=== PATIENT | male | born 1985 | race American Indian/Alaskan Native ===

== ENCOUNTER 2018-01-14 02:20 | Emergency (ER) | payer MEDICAID ==
[2018-01-14 04:23] LABS: Basophils % (Auto) 0.2 % (0.0-1.8); Eosinophils # (Auto) 0.1 K/mm3 (0.0-0.4); Eosinophils % (Auto) 1.1 % (0.0-4.3); Hematocrit 47.3 % (35.5-45.6); Hemoglobin 16.1 gm/dl (11.8-15.2); Lymphocytes # (Auto) 0.6 K/mm3 (1.2-5.4); Lymphocytes % (Auto) 5.1 % (13.4-35.0); Mean Corpuscular HGB Conc 34 % (32-34); Mean Corpuscular Hemoglobin 31 pg (28-32); Mean Corpuscular Volume 90 fl (84-94); Monocytes # (Auto) 0.5 K/mm3 (0.0-0.8); Monocytes % (Auto) 4.4 % (0.0-7.3); Platelet Count 211 K/mm3 (140-440); Red Blood Count 5.25 M/mm3 (3.65-5.03); Red Cell Distribution Width 12.9 % (13.2-15.2)
[2018-01-14 05:27] LABS: Alanine Aminotransferase 15 units/L (7-56); Albumin 5.2 g/dL (3.9-5); BUN/Creatinine Ratio 22; Blood Urea Nitrogen 20 mg/dL (9-20); Calcium 9.7 mg/dL (8.4-10.2); Hemolysis Index 16
--- NOTE | 2018-01-14 08:26 | Emergency Department Report ---
ED Abdominal Pain HPI - General Chief Complaint: Abdominal Pain Stated Complaint: ABD PAIN VOMITING Time Seen by Provider: 01/14/18 08:26 Source: patient, family Mode of arrival: Ambulatory Limitations: No Limitations - History of Present Illness Initial Comments: This is a 38-year-old male who is reported in left and right upper quadrant abdominal pain with nausea and vomiting and feels gassy that started this morning and patient daughter has same symptoms and father said that he thinks he might have gotten the same thing the patient has. He has diarrhea stool 3 today with some nausea and vomiting. He reports vomiting 2. No blood in vomiting or diarrhea. Pain is 8 out of 10 and crampy comes and goes. No alleviating or exacerbating factors. He has no medical history. Denies any fevers chills. MD Complaint: abdominal pain, other (nausea vomiting and diarrhea) -: This morning Location: RUQ, LLQ Radiation: none Migration to: no migration Severity: severe Severity scale (0 -10): 8 Quality: cramping Consistency: intermittent Improves With: nothing Worsens With: nothing Context: possible food poisoning Associated Symptoms: nausea, vomiting, diarrhea. denies: fever, chills, constipation, dysuria, hematemesis, hematochezia, melena, hematuria, anorexia, syncope - Related Data Previous Rx's Medication Instructions Recorded Last Taken Type Dicyclomine [Bentyl] 40 mg PO Q8H 3 Days #9 tablet 01/14/18 Unknown Rx Ondansetron [Zofran Odt] 4 mg PO Q6H PRN #20 tab.rapdis 01/14/18 Unknown Rx Allergies Allergy/AdvReac Type Severity Reaction Status Date / Time No Known Allergies Allergy Verified 11/09/15 03:14 ED Review of Systems ROS: Stated complaint: ABD PAIN VOMITING Other details as noted in HPI Constitutional: denies: chills, fever Eyes: denies: eye pain, eye discharge, vision change ENT: denies: ear pain, throat pain Respiratory: denies: cough, shortness of breath, wheezing Cardiovascular: denies: chest pain, palpitations Gastrointestinal: abdominal pain, nausea, vomiting. denies: diarrhea, hematemesis, hematochezia Genitourinary: denies: urgency, dysuria, hematuria, discharge Musculoskeletal: denies: back pain, joint swelling, arthralgia Skin: denies: rash, lesions Neurological: denies: headache, weakness, paresthesias ED Past Medical Hx - Past Medical History Previous Medical History?: No - Surgical History Past Surgical History?: Yes Additional Surgical History: POST OP MIDLINE CHEST SCAR - Family History Family history: hypertension - Social History Smoking Status: Current Every Day Smoker Substance Use Type: Marijuana - Medications Home Medications: Home Medications Medication Instructions Recorded Confirmed Last Taken Type Dicyclomine [Bentyl] 40 mg PO Q8H 3 Days #9 tablet 01/14/18 Unknown Rx Ondansetron [Zofran Odt] 4 mg PO Q6H PRN #20 tab.rapdis 01/14/18 Unknown Rx ED Physical Exam - General Limitations: No Limitations General appearance: alert, in no apparent distress - Head Head exam: Present: atraumatic, normocephalic, normal inspection - Eye Eye exam: Present: normal appearance, PERRL, EOMI Pupils: Present: normal accommodation - ENT ENT exam: Present: normal exam, normal orophraynx, mucous membranes moist - Neck Neck exam: Present: normal inspection, full ROM. Absent: tenderness, lymphadenopathy - Respiratory Respiratory exam: Present: normal lung sounds bilaterally. Absent: respiratory distress, chest wall tenderness - Cardiovascular Cardiovascular Exam: Present: regular rate, normal rhythm, normal heart sounds - GI/Abdominal GI/Abdominal exam: Present: soft, normal bowel sounds. Absent: distended, tenderness, guarding, rebound, rigid, organomegaly, mass, bruit - Extremities Exam Extremities exam: Present: normal inspection, full ROM, normal capillary refill , other (No cce. + 2 pulses in all extremities, no neurovascular compromise). Absent: tenderness, pedal edema, joint swelling, calf tenderness - Back Exam Back exam: Present: normal inspection, full ROM, other (ambulates without any difficulties). Absent: tenderness, CVA tenderness (R), CVA tenderness (L), muscle spasm, paraspinal tenderness, vertebral tenderness, rash noted - Neurological Exam Neurological exam: Present: alert, oriented X3, normal gait - Psychiatric Psychiatric exam: Present: normal affect, normal mood - Skin Skin exam: Present: warm, dry, intact, normal color. Absent: rash ED Course Vital Signs 01/14/18 01/14/18 03:16 08:44 Temperature 97.5 F L Pulse Rate 59 L Respiratory 12 18 Rate Blood Pressure 112/74 O2 Sat by Pulse 100 Oximetry - Reevaluation(s) Reevaluation #1: 01/14/18 11:34 Patient given 1 L normal saline 1, Toradol 30 mg IV and Zofran 4 mg IV with relief of abdominal pain and nausea and vomiting. He said he better and no episodes of diarrhea while in the emergency room ED Medical Decision Making - Lab Data Result diagrams: 01/14/18 04:10 01/14/18 04:10 Lab Results 01/14/18 01/14/18 Range/Units 04:10 04:10 WBC 11.8 H (4.5-11.0) K/mm3 RBC 5.25 H (3.65-5.03) M/mm3 Hgb 16.1 H (11.8-15.2) gm/dl Hct 47.3 H (35.5-45.6) % MCV 90 (84-94) fl MCH 31 (28-32) pg MCHC 34 (32-34) % RDW 12.9 L (13.2-15.2) % Plt Count 211 (140-440) K/mm3 Lymph % (Auto) 5.1 L (13.4-35.0) % Moody % (Auto) 4.4 (0.0-7.3) % Eos % (Auto) 1.1 (0.0-4.3) % Baso % (Auto) 0.2 (0.0-1.8) % Lymph # 0.6 L (1.2-5.4) K/mm3 Moody # 0.5 (0.0-0.8) K/mm3 Eos # 0.1 (0.0-0.4) K/mm3 Baso # 0.0 (0.0-0.1) K/mm3 Seg Neutrophils % 89.2 H (40.0-70.0) % Seg Neutrophils # 10.5 H (1.8-7.7) K/mm3 Sodium 140 (137-145) mmol/L Potassium 4.5 (3.6-5.0) mmol/L Chloride 100.3 (98-107) mmol/L Carbon Dioxide 25 (22-30) mmol/L Anion Gap 19 mmol/L BUN 20 (9-20) mg/dL Creatinine 0.9 (0.8-1.5) mg/dL Estimated GFR > 60 ml/min BUN/Creatinine Ratio 22 % Glucose 99 (75-100) mg/dL Calcium 9.7 (8.4-10.2) mg/dL Total Bilirubin 1.20 (0.1-1.2) mg/dL AST 27 (5-40) units/L ALT 15 (7-56) units/L Alkaline Phosphatase 66 (35-129) units/L Total Protein 8.1 (6.3-8.2) g/dL Albumin 5.2 H (3.9-5) g/dL Albumin/Globulin Ratio 1.8 % - Medical Decision Making This is a 32-year-old male here reports that he has nausea vomiting diarrhea that he thinks he might have flown from his daughter is here to be evaluated. Patient was examined by myself and found to have normal exam. Ativan is limited nontender. No quadrants, normal bowel sounds. No CVA nontender to palpate. Patient was given 1 L of normal saline, Toradol 30 mg IV which relieved his abdominal pain and he was given Zofran 4 mg IV and he is no longer having nausea or vomiting. He said he is feeling a lot better. He had CBC done with mild elevation in white blood count and slight shift to the left, CMP is 70. I discussed results of labs with patient and he was understanding. I also discussed diagnosis and medication/treatment plan. He does not have a primary care physician, I referred him to [facility] in 3 days. Patient vital signs stable, he is nontoxic in appearance and is feeling a lot better . Patient discharged home a prescription for Bentyl, Zofran and I instructed him on maintain an BRAT diet over the next 72 hours. Nathaniel he will. He voiced understanding. Critical care attestation.: If time is entered above; I have spent that time in minutes in the direct care of this critically ill patient, excluding procedure time. ED Disposition Clinical Impression: Nausea vomiting and diarrhea Abdominal pain Qualifiers: Abdominal location: generalized Qualified Code(s): R10.84 - Generalized abdominal pain Disposition: TO HOME OR SELFCARE Is pt being admited?: No Does the pt Need Aspirin: No Condition: Stable Instructions: Acute Nausea and Vomiting (ED), Abdominal Pain (ED), Acute Diarrhea (ED), Nutrition Tips for Relief of Diarrhea (ED) Additional Instructions: Please follow up with [facility] If condition worsens, return to the emergency room Follow-up Brat diet to include banana, rice, applesauce and toast over the next 72 hours and avoid carbonated beverages and spicy food Referrals: [facility] [Outside] - 01/17/18 PRIMARY CAREMD [Primary Care Provider] - 01/17/18 Forms: Work/School Release Form(ED)
[2018-01-14] MEDS ORDERED: NACL 0.9% 1000 ML 1,000 ML IV ONE ×2 (08:28→09:45)
[2018-01-14] MEDS ORDERED: ZOFRAN IV ONE (08:28)
[2018-01-14] MEDS ORDERED: TORADOL IV ONE (08:28)
[2018-01-14 12:51] VITALS: BP 118/70
== END 2018-01-14 11:50 | disposition home or self-care (01) ==
LOC: ED 02:20
DX: R11.2 Nausea with vomiting, unspecified (principal); R19.7 Diarrhea, unspecified; R10.84 Generalized abdominal pain; F17.200 Nicotine dependence, unspecified, uncomplicated; F12.90 Cannabis use, unspecified, uncomplicated
CPT/HCPCS: 36415; 80053; 85025; 96361; 96374; 96375; 99283; J1885; J2405; J7030

== ENCOUNTER 2020-11-18 19:12 | Emergency (ER) | payer MEDICAID ==
[2020-11-18 22:13] LABS: Basophils # (Auto) 0.1 K/mm3 (0.0-0.1); Eosinophils # (Auto) 0.1 K/mm3 (0.0-0.4); Eosinophils % (Auto) 1.6 % (0.0-4.3); Hematocrit 38.9 % (35.5-45.6); Hemoglobin 13.4 gm/dl (11.8-15.2); Lymphocytes # (Auto) 3.3 K/mm3 (1.2-5.4); Lymphocytes % (Auto) 45.5 % (13.4-35.0); Mean Corpuscular HGB Conc 34 % (32-34); Mean Corpuscular Volume 93 fl (84-94); Monocytes # (Auto) 0.5 K/mm3 (0.0-0.8); Monocytes % (Auto) 7.3 % (0.0-7.3); Platelet Count 238 K/mm3 (140-440); Red Blood Count 4.17 M/mm3 (3.65-5.03); Red Cell Distribution Width 12.9 % (13.2-15.2)
[2020-11-18 22:28] LABS: BUN/Creatinine Ratio 14; Blood Urea Nitrogen 14 mg/dL (9-20); Calcium 8.8 mg/dL (8.4-10.2); Hemolysis Index 13
--- NOTE | 2020-11-18 23:31 | Emergency Department Report ---
<WILFREDO VELASQUEZ - Last Filed: 11/19/20 00:04> ED General Adult HPI - General Chief complaint: Psych Stated complaint: MH EVAL/SUICIDAL PUI?: No Time Seen by Provider: 11/18/20 23:04 Source: patient, RN notes reviewed, old records reviewed Mode of arrival: Ambulatory Limitations: No Limitations - History of Present Illness Initial comments: The patient is a 35-year-old gentleman who is not known to myself previously, who presents to the ER with a complaint of painless suicidality, with no plan, and request for detox from drugs, including alcohol and cocaine. The patient denies physical pain at this time, with the exception of right arm pain, where he received a phlebotomy stick for essential laboratory studies. He otherwise denies additional pain. He has not received his Covid vaccination at this time, but denies Covid symptomatology, and reports that he is supposed to get his Covid vaccine next week. He denies hallucinations and homicidality. The patient denies headache, neck pain, chest pain, abdominal pain or shortness of breath as well as urinary symptoms. He also denies cough. He reports that he is feeling suicidal. He currently does not have access to guns or firearms. He does not describe exacerbating factors, relieving factors, aggravating factors, and denies radiat ion of factors at this time. -: Gradual Improves with: none Worsens with: none Associated Symptoms: denies other symptoms - Related Data Previous Rx's Medication Instructions Recorded Last Taken Type Dicyclomine [Bentyl] 40 mg PO Q8H 3 Days #9 tablet 01/14/18 Unknown Rx Ondansetron [Zofran Odt] 4 mg PO Q6H PRN #20 tab.rapdis 01/14/18 Unknown Rx Allergies Allergy/AdvReac Type Severity Reaction Status Date / Time No Known Allergies Allergy Verified 11/09/15 03:14 ED Review of Systems Comment: All other systems reviewed and negative Psychiatric: suicidal thoughts. denies: homicidal thoughts ED Past Medical Hx - Past Medical History Previous Medical History?: No - Surgical History Past Surgical History?: Yes Additional Surgical History: open heart, POST OP MIDLINE CHEST SCAR - Social History Smoking Status: Current Every Day Smoker Substance Use Type: Marijuana - Medications Home Medications: Home Medications Medication Instructions Recorded Confirmed Last Taken Type Dicyclomine [Bentyl] 40 mg PO Q8H 3 Days #9 tablet 01/14/18 Unknown Rx Ondansetron [Zofran Odt] 4 mg PO Q6H PRN #20 tab.rapdis 01/14/18 Unknown Rx ED Physical Exam - General Limitations: No Limitations General appearance: alert, in no apparent distress - Head Head exam: Present: atraumatic, normocephalic - Eye Eye exam: Present: normal appearance, EOMI. Absent: nystagmus - ENT ENT exam: Present: normal exam, normal orophraynx, mucous membranes moist, normal external ear exam - Neck Neck exam: Present: normal inspection, full ROM. Absent: tenderness, meningi smus - Respiratory Respiratory exam: Present: normal lung sounds bilaterally. Absent: respiratory distress, wheezes, rales, rhonchi, stridor, decreased breath sounds - Cardiovascular Cardiovascular Exam: Present: regular rate, normal rhythm, normal heart sounds. Absent: bradycardia, tachycardia, irregular rhythm, systolic murmur, diastolic murmur, rubs, gallop - GI/Abdominal GI/Abdominal exam: Present: soft. Absent: distended, tenderness, guarding, rebound, rigid, pulsatile mass - Rectal Rectal exam: Present: deferred - Extremities Exam Extremities exam: Present: normal inspection, full ROM, other (2+ pulses noted in the bilateral upper and lower extremities. There is no palpable cord. nega tive Homans sign. Muscular compartments are soft. The pelvis is stable.). Absent: pedal edema, calf tenderness - Back Exam Back exam: Present: normal inspection, full ROM. Absent: tenderness, CVA tenderness (R), CVA tenderness (L), paraspinal tenderness, vertebral tenderness - Neurological Exam Neurological exam: Present: alert, oriented X3, normal gait, other (No facial droop. Tongue midline. Extraocular movements intact bilaterally. Facial sensation intact to light touch in V1, V2, V3 distribution bilaterally. 5 and a 5 strength in 4 extremities. Sensation intact to light touch in 4 extremities.). Absent: motor sensory deficit - Psychiatric Psychiatric exam: Present: suicidal ideation. Absent: homicidal ideation - Skin Skin exam: Present: warm, dry, intact, normal color. Absent: rash ED Course - Reevaluation(s) Reevaluation #1: 11/18/20 23:44 Differential diagnosis, including not limited to: Polysubstance abuse, polysubstance dependence, behavioral health screening examination, medical clearance for psychiatric examination Assessment and plan: 35-year-old gentleman, who is clinically sober at this time, who walks with a steady gait, with a GCS of 15, with a benign and unremarkable physical examination, here today with a complaint of painless suicidality, and request for detox. He is clinically sober at this time. Place patient on hold status, as needed orders initiated, screening laboratory studies ordered, results pending, mental health evaluation pending at this time, as well as urinalysis. Covid screen ordered in case patient requires admission or transfer to a psychiatric facility. We anticipate that we will be able to exclude emergent medical conditions at this time, and deemed the patient medically suitable for psychiatric consultation, placement, and ultimate disposition. Discussed this plan of care with the patient, who is agreeable. 11/19/20 00:04 Laboratory studies reviewed, and are unremarkable. Urinalysis pending. Minimal hypomagnesemia addressed. At this point in time, patient does not appear to have an immediate medical contraindication to psychiatric admission, evaluation, consultation and placement. If the psychiatric team elects to discharge this patient with outpatient resources, we would consider this patient medically suitable for discharge with outpatient follow-up. Therefore, ultimate disposition as per the psychiatric team. ED Medical Decision Making - Lab Data Result diagrams: 11/18/20 21:51 11/18/20 21:51 Vital Signs 11/18/20 21:41 Temperature 99 F Pulse Rate 70 Respiratory 16 Rate Blood Pressure 107/58 [Right] O2 Sat by Pulse 99 Oximetry Lab Results 11/18/20 11/18/20 11/18/20 Range/Units 21:51 21:51 21:51 WBC (4.5-11.0) K/mm3 RBC (3.65-5.03) M/mm3 Hgb (11.8-15.2) gm/dl Hct (35.5-45.6) % MCV (84-94) fl MCH (28-32) pg MCHC (32-34) % RDW (13.2-15.2) % Plt Count (140-440) K/mm3 Lymph % (Auto) (13.4-35.0) % Lyon % (Auto) (0.0-7.3) % Eos % (Auto) (0.0-4.3) % Baso % (Auto) (0.0-1.8) % Lymph # (Auto) (1.2-5.4) K/mm3 Lyon # (Auto) (0.0-0.8) K/mm3 Eos # (Auto) (0.0-0.4) K/mm3 Baso # (Auto) (0.0-0.1) K/mm3 Seg Neutrophils % (40.0-70.0) % Seg Neutrophils # (1.8-7.7) K/mm3 Sodium 137 (137-145) mmol/L Potassium 4.0 (3.6-5.0) mmol/L Chloride 99.5 (98-107) mmol/L Carbon Dioxide 26 (22-30) mmol/L Anion Gap 16 mmol/L BUN 14 (9-20) mg/dL Creatinine 1.0 (0.8-1.3) mg/dL Estimated GFR > 60 ml/min BUN/Creatinine Ratio 14 % Glucose 102 H (75-100) mg/dL Calcium 8.8 (8.4-10.2) mg/dL Salicylates < 0.3 L (2.8-20.0) mg/dL Acetaminophen 5.0 L (10.0-30.0) ug/mL Plasma/Serum Alcohol (0-0.07) % 11/18/20 11/18/20 Range/Units 21:51 21:51 WBC 7.2 (4.5-11.0) K/mm3 RBC 4.17 (3.65-5.03) M/mm3 Hgb 13.4 (11.8-15.2) gm/dl Hct 38.9 (35.5-45.6) % MCV 93 (84-94) fl MCH 32 (28-32) pg MCHC 34 (32-34) % RDW 12.9 L (13.2-15.2) % Plt Count 238 (140-440) K/mm3 Lymph % (Auto) 45.5 H (13.4-35.0) % Lyon % (Auto) 7.3 (0.0-7.3) % Eos % (Auto) 1.6 (0.0-4.3) % Baso % (Auto) 1.0 (0.0-1.8) % Lymph # (Auto) 3.3 (1.2-5.4) K/mm3 Lyon # (Auto) 0.5 (0.0-0.8) K/mm3 Eos # (Auto) 0.1 (0.0-0.4) K/mm3 Baso # (Auto) 0.1 (0.0-0.1) K/mm3 Seg Neutrophils % 44.6 (40.0-70.0) % Seg Neutrophils # 3.2 (1.8-7.7) K/mm3 Sodium (137-145) mmol/L Potassium (3.6-5.0) mmol/L Chloride (98-107) mmol/L Carbon Dioxide (22-30) mmol/L Anion Gap mmol/L BUN (9-20) mg/dL Creatinine (0.8-1.3) mg/dL Estimated GFR ml/min BUN/Creatinine Ratio % Glucose (75-100) mg/dL Calcium (8.4-10.2) mg/dL Salicylates (2.8-20.0) mg/dL Acetaminophen (10.0-30.0) ug/mL Plasma/Serum Alcohol < 0.01 (0-0.07) % Lab Results 11/18/20 11/18/20 11/18/20 Range/Units 21:51 21:51 21:51 WBC (4.5-11.0) K/mm3 RBC (3.65-5.03) M/mm3 Hgb (11.8-15.2) gm/dl Hct (35.5-45.6) % MCV (84-94) fl MCH (28-32) pg MCHC (32-34) % RDW (13.2-15.2) % Plt Count (140-440) K/mm3 Lymph % (Auto) (13.4-35.0) % Lyon % (Auto) (0.0-7.3) % Eos % (Auto) (0.0-4.3) % Baso % (Auto) (0.0-1.8) % Lymph # (Auto) (1.2-5.4) K/mm3 Lyon # (Auto) (0.0-0.8) K/mm3 Eos # (Auto) (0.0-0.4) K/mm3 Baso # (Auto) (0.0-0.1) K/mm3 Seg Neutrophils % (40.0-70.0) % Seg Neutrophils # (1.8-7.7) K/mm3 Sodium 137 (137-145) mmol/L Potassium 4.0 (3.6-5.0) mmol/L Chloride 99.5 (98-107) mmol/L Carbon Dioxide 26 (22-30) mmol/L Anion Gap 16 mmol/L BUN 14 (9-20) mg/dL Creatinine 1.0 (0.8-1.3) mg/dL Estimated GFR > 60 ml/min BUN/Creatinine Ratio 14 % Glucose 102 H (75-100) mg/dL Calcium 8.8 (8.4-10.2) mg/dL Magnesium (1.7-2.3) mg/dL Total Creatine Kinase (55-170) units/L Salicylates < 0.3 L (2.8-20.0) mg/dL Acetaminophen 5.0 L (10.0-30.0) ug/mL Plasma/Serum Alcohol (0-0.07) % 11/18/20 11/18/20 11/18/20 Range/Units 21:51 21:51 21:51 WBC 7.2 (4.5-11.0) K/mm3 RBC 4.17 (3.65-5.03) M/mm3 Hgb 13.4 (11.8-15.2) gm/dl Hct 38.9 (35.5-45.6) % MCV 93 (84-94) fl MCH 32 (28-32) pg MCHC 34 (32-34) % RDW 12.9 L (13.2-15.2) % Plt Count 238 (140-440) K/mm3 Lymph % (Auto) 45.5 H (13.4-35.0) % Lyon % (Auto) 7.3 (0.0-7.3) % Eos % (Auto) 1.6 (0.0-4.3) % Baso % (Auto) 1.0 (0.0-1.8) % Lymph # (Auto) 3.3 (1.2-5.4) K/mm3 Lyon # (Auto) 0.5 (0.0-0.8) K/mm3 Eos # (Auto) 0.1 (0.0-0.4) K/mm3 Baso # (Auto) 0.1 (0.0-0.1) K/mm3 Seg Neutrophils % 44.6 (40.0-70.0) % Seg Neutrophils # 3.2 (1.8-7.7) K/mm3 Sodium (137-145) mmol/L Potassium (3.6-5.0) mmol/L Chloride (98-107) mmol/L Carbon Dioxide (22-30) mmol/L Anion Gap mmol/L BUN (9-20) mg/dL Creatinine (0.8-1.3) mg/dL Estimated GFR ml/min BUN/Creatinine Ratio % Glucose (75-100) mg/dL Calcium (8.4-10.2) mg/dL Magnesium 1.60 L (1.7-2.3) mg/dL Total Creatine Kinase 198 H (55-170) units/L Salicylates (2.8-20.0) mg/dL Acetaminophen (10.0-30.0) ug/mL Plasma/Serum Alcohol < 0.01 (0-0.07) % ED Disposition Clinical Impression: Medical clearance for psychiatric admission, Polysubstance abuse, Encounter for behavioral health screening Disposition: DC-01 TO HOME OR SELFCARE Is pt being admited?: No Does the pt Need Aspirin: No Condition: Good Instructions: Substance Use Disorder and Mental Illness Referrals: PRIMARY CARE, [Primary Care Provider] - 3-5 Days <ZURDO MORRISON - Last Filed: 11/19/20 10:16> ED Review of Systems ROS: Stated complaint: MH EVAL/SUICIDAL Other details as noted in HPI ED Course Vital Signs 11/18/20 11/19/20 11/19/20 21:41 02:04 07:53 Temperature 99 F 98.3 F 97.6 F Pulse Rate 70 58 L 86 Respiratory 16 16 20 Rate Blood Pressure 107/58 97/51 116/79 [Right] O2 Sat by Pulse 99 98 99 Oximetry ED Medical Decision Making - Lab Data Result diagrams: 11/18/20 21:51 11/18/20 21:51 - Medical Decision Making Patient has been evaluated by our psychiatric team and advised outpatient treatment. Patient is currently denying any suicidal or homicidal ideation. No auditory or visual hallucination. Patient is medically and psychiatrically stable for discharge. Critical care attestation.: If time is entered above; I have spent that time in minutes in the direct care of this critically ill patient, excluding procedure time.
[2020-11-18] MEDS ORDERED: ONDANSETRON 4 MG ODT TAB PO PRN (23:39)
[2020-11-18] MEDS ORDERED: diphenhydrAMINE 25 MG CAP PO PRN (23:39)
[2020-11-18] MEDS ORDERED: ACETAMINOPHEN 325 MG TAB PO PRN (23:39)
[2020-11-18] MEDS ORDERED: chlordiazePOXIDE 25 MG CAP PO PRN ×2 (23:39)
[2020-11-18] MEDS ORDERED: LORazepam 2 MG/ML VIAL IV PRN (23:39)
[2020-11-18] MEDS ORDERED: LORazepam 2 MG TAB PO PRN (23:39)
[2020-11-18] MEDS ORDERED: LORazepam 2 MG/ML VIAL IM PRN (23:39)
[2020-11-19] MEDS ORDERED: MAGNESIUM OXIDE 400 MG TAB PO STA ×2 (00:03→05:19)
[2020-11-19 00:21] LABS: Bilirubin,Urine NEG (Negative); Blood,Urine NEG (Negative); Color,Urine Yellow (Yellow); Mucus,Urine 3+ /HPF
[2020-11-19 00:34] LABS: Amphetamine Screen,Urine PRESUMPTIVE NEGATIVE; Benzodiazepines Screen,Urine PRESUMPTIVE NEGATIVE; Cannabinoid Screen,Urine PRESUMPTIVE POSITIVE; Cocaine Screen,Urine PRESUMPTIVE POSITIVE; Methadone Screen,Urine PRESUMPTIVE NEGATIVE; Opiate Screen,Urine PRESUMPTIVE NEGATIVE
[2020-11-19 07:54] VITALS: BP 116/79
--- NOTE | 2020-11-19 09:33 | Consultation ---
History of Present Illness - Reason for Consult Consult date: 11/19/20 Reason for consult: SI, drug use - History of Present Psychiatric Illness Per ER Note: The patient is a 35-year-old gentleman who is not known to myself previously, who presents to the ER with a complaint of painless suicidality, with no plan, and request for detox from drugs, including alcohol and cocaine. The patient denies physical pain at this time, with the exception of right arm pain, where he received a phlebotomy stick for essential laboratory studies. He otherwise denies additional pain. He has not received his Covid vaccination at this time, but denies Covid symptomatology, and reports that he is supposed to get his Covid vaccine next week. He denies hallucinations and homicidality. The patient denies headache, neck pain, chest pain, abdominal pain or shortness of breath as well as urinary symptoms. He also denies cough. He reports that he is feeling suicidal. He currently does not have access to guns or firearms. He does not describe exacerbating factors, relieving factors, aggravating factors, and denies radiation of factors at this time. Ramesh Acosta is a 35y/o male patient who states he came to the ER for feeling suicidal after cocaine and alcohol use. The patient doesn't give a lot of insight as to what is going on with him. He did say that he needed drug and alcohol rehab. He denies being on any psych meds or having substantial psych history. When asked if he ever seen a psychiatrist, he nodded his head yes. But he states he doesn't remember what he saw one for. When asking the patient was he currently suicidal, he replies "not at the moment, but I really need to detox." He denies any past attempt of suicidal. He also denies hallucinations of any kind. PAST PSYCHIATRIC HISTORY Diagnoses: Denies Suicide attempts or Self-harm behavior: Denies Prior psychiatric hospitalizations: Denies Substance Abuse history: denies Previous psychiatric medications tried: Denies Outpatient treatment: Denies SOCIAL HISTORY Marital Status: Living Arrangements: and kids Employment Status: Unemployed Access to guns/weapons: Denies Education: high school History of Abuse: Denies Legal History: None reported REVIEW OF SYSTEMS Constitutional: Negative for weight loss ENT: Negative for stridor Respiratory: Negative for cough or hemoptysis All other systems reviewed and are negative MENTAL STATUS EXAMINATION General Appearance and Behavior: Age appropriate, dressed appropriately, calm and cooperative Cooperation: Participating Psychomotor Behavior: psychomotor normal Mood: okay Affect and affective range: Congruent with stated mood Thought Process: goal directed Thought Content: None Speech: Normal volume, Regular rate and rhythm, Intellectual Functioning: Average Suicidal Ideation: "not at the moment" Homicidal Ideation: Denies Hallucinations: Denies Delusions: None elilicited Impulse Control: Impaired Insight and Judgment: Limited insight and judgment, Memory: Limited Attention: Undivided Orientation: Alert, oriented Assessment and Plan (1) Cocaine Dependence with Substance Induced Mood (2) Alcohol Dependence Treatment Plan No meds at this time Risks, benefits and alternatives of medications discussed with the patient, questions answered and consent obtained from patient. PSYCHOTHERAPY: Supportive psychotherapy provided MEDICAL: Per primary team DELIRIUM PRECAUTIONS: Please re-orient patient frequently, keep lights on during the day, and minimize benzodiazepines and opiates as these medications could worsen patient's confusion. [employer]: Defer to primary DISPOSITION: Do not recommend acute inpatient psychiatric hospitalization. He does not meet psych criteria at this time. The patient is clear to go to drug and alcohol rehab. The patient understands that if SI/HI are to reoccur he is to seek immediate assistance including 911/ER or/and crisis hotline. The quality worker to further discuss safety plan, and give the patient resources for CBT, med management and drug/alcohol rehab The patient to follow up with outpatient in 7 to 14 days upon discharge Will sign off. Thank you for the consult. Please contact with any questions and/or concerns. Case staffed with Dr. Walker Medications and Allergies Allergies Allergy/AdvReac Type Severity Reaction Status Date / Time No Known Allergies Allergy Verified 11/09/15 03:14 Home Medications Medication Instructions Recorded Confirmed Last Taken Type Dicyclomine [Bentyl] 40 mg PO Q8H 3 Days #9 tablet 01/14/18 Unknown Rx Ondansetron [Zofran Odt] 4 mg PO Q6H PRN #20 tab.rapdis 01/14/18 Unknown Rx Active Meds: Active Medications Acetaminophen (Acetaminophen 325 Mg Tab) 650 mg PO Q6HR PRN PRN Reason: PAIN Chlordiazepoxide HCl (Chlordiazepoxide 25 Mg Cap) 50 mg PO Q1HR PRN PRN Reason: CIWA-Ar 8-15 Chlordiazepoxide HCl (Chlordiazepoxide 25 Mg Cap) 100 mg PO Q1HR PRN PRN Reason: CIWA-Ar 16-25 Diphenhydramine HCl (Diphenhydramine 25 Mg Cap) 50 mg PO QHS PRN PRN Reason: Insomnia Lorazepam (Lorazepam 2 Mg/Ml Vial) 2 mg IM Q4HR PRN PRN Reason: Agitation Lorazepam (Lorazepam 2 Mg Tab) 4 mg PO Q1HR PRN PRN Reason: CIWA-Ar 16-25 Lorazepam (Lorazepam 2 Mg/Ml Vial) 4 mg IV Q15MIN PRN PRN Reason: CIWA-Ar >25 Ondansetron HCl (Ondansetron 4 Mg Odt Tab) 4 mg PO Q6HR PRN PRN Reason: Nausea Mental Status Exam - Vital signs Last Vital Signs Temp 97.6 F 11/19/20 07:53 Pulse 86 11/19/20 07:53 Resp 20 11/19/20 07:53 BP 116/79 11/19/20 07:53 Pulse Ox 99 11/19/20 07:53 Results Result Diagrams: 11/18/20 21:51 11/18/20 21:51 Abnormal lab results 11/18/20 11/18/20 11/18/20 Range/Units 21:51 21:51 21:51 RDW (13.2-15.2) % Lymph % (Auto) (13.4-35.0) % Glucose 102 H (75-100) mg/dL Magnesium (1.7-2.3) mg/dL Total Creatine Kinase (55-170) units/L Salicylates < 0.3 L (2.8-20.0) mg/dL Acetaminophen 5.0 L (10.0-30.0) ug/mL 11/18/20 11/18/20 Range/Units 21:51 21:51 RDW 12.9 L (13.2-15.2) % Lymph % (Auto) 45.5 H (13.4-35.0) % Glucose (75-100) mg/dL Magnesium 1.60 L (1.7-2.3) mg/dL Total Creatine Kinase 198 H (55-170) units/L Salicylates (2.8-20.0) mg/dL Acetaminophen (10.0-30.0) ug/mL All other labs normal.
== END 2020-11-19 10:46 | disposition home or self-care (01) ==
LOC: EEVIPCON 19:12 → ED 19:12
DX: Z04.6 Encounter for general psychiatric examination, requested by authority (principal); Z13.39 Encounter for screening examination for other mental health and behavioral disorders; Z20.822 Contact with and (suspected) exposure to COVID-19; R45.851 Suicidal ideations; R51.9 Headache, unspecified; M54.2 Cervicalgia; F19.10 Other psychoactive substance abuse, uncomplicated; Z79.899 Other long term (current) drug therapy
CPT/HCPCS: 36415; 80048; 80307; 81001; 82550; 83735; 85025; 99284; U0003; 80320; G0480